=== PATIENT | male | born 1990 ===

== ENCOUNTER → 2016-11-26 | Outpatient (REF) ==
--- NOTE | 2016-11-26 14:33 | Diagnostic Imaging Report ---
EXAMINATION: AP and frog-lateral views of the left hip INDICATION: Left hip pain. FINDINGS: No fracture, dislocation or radiopaque foreign body seen. No significant degenerative changes seen. There is underpenetration of the image probably related to large patient body habitus. IMPRESSION: Underpenetration the radiograph is probably related to large patient body habitus with no definite abnormality. Dictated by: Dictated on workstation # [id number]
== END | disposition home or self-care (01) ==
LOC: OCC 14:10
PROVIDERS: ATTEND Nurse Practitioner Family
CPT/HCPCS: 73502